=== PATIENT | female | born 1990 | race American Indian/Alaskan Native ===

== ENCOUNTER 2018-01-24 03:06 | Emergency (ER) | payer SELFPAY ==
[2018-01-24 03:22] VITALS: BP 105/73
[2018-01-24 04:21] LABS: Bacteria,Urine 2+ /HPF (Negative); Bilirubin,Urine NEG (Negative); Blood,Urine MOD (Negative); Color,Urine Yellow (Yellow); Mucus,Urine FEW /HPF; Protein,Urine <15 mg/dL mg/dL (Negative); Urobilinogen,Urine < 2.0 mg/dL (<2.0)
[2018-01-24 04:24] LABS: HCG Qualitative,Urine Negative (Negative)
== END 2018-01-24 07:49 ==
LOC: ED 03:06
DX: R30.0 Dysuria (principal); R31.9 Hematuria, unspecified; Z53.21 Procedure and treatment not carried out due to patient leaving prior to being seen by health care provider
CPT/HCPCS: 81001; 81025

== ENCOUNTER 2018-01-24 12:42 | Emergency (ER) | payer SELFPAY ==
[2018-01-24 13:04] VITALS: BP 112/74
--- NOTE | 2018-01-24 15:45 | Emergency Department Report ---
ED Female HPI - General Chief complaint: Urogenital-Female Stated complaint: BLOOD IN URINE/PAIN Time Seen by Provider: 01/24/18 15:32 Source: patient Mode of arrival: Ambulatory Limitations: No Limitations - History of Present Illness Initial comments: This is a 27-year-old -[place] female who presents with hematuria and dysuria for 2 days. 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 Patient states she has been having suprapubic pain and bilateral flank pain for 2-3 days. Patient states she has not taken anything. She admits to recently being treated for yeast infection and negative STD screening at [facility]. Symptoms improved after completing medication. Patient denies vaginal discharge, frequency, urgency, and fever. MD Complaint: dysuria Onset/Timin -: days(s) Severity: mild Severity scale (0 -10): 0 Quality: burning Consistency: intermittent Improves with: none Worsens with: urination Are you Now?: No Last Menstrual Period: 01/07/18 EDC: 10/14/18 Associated Symptoms: abdominal pain (suprapubic pressure), dysuria, hematuria. denies: nausea/vomiting, fever/chills, headaches, loss of appetite, rash, seizure, shortness of breath, syncope, weakness - Related Data Sexually active: No Previous Rx's Medication Instructions Recorded Last Taken Type Phenazopyridine [Pyridium] 200 mg PO TID #6 tab 01/24/18 Unknown Rx Sulfamethoxazole/Trimethoprim 1 each PO BID #6 tablet 01/24/18 Unknown Rx [Bactrim DS TAB] Allergies Allergy/AdvReac Type Severity Reaction Status Date / Time No Known Allergies Allergy Unverified 01/24/18 03:22 ED Review of Systems ROS: Stated complaint: BLOOD IN URINE/PAIN Other details as noted in HPI Constitutional: denies: chills, fever Respiratory: denies: cough, shortness of breath, wheezing Cardiovascular: denies: chest pain, palpitations Gastrointestinal: abdominal pain (suprapubic pressure). denies: nausea, vomiting, diarrhea Genitourinary: dysuria, hematuria. denies: urgency, discharge Musculoskeletal: back pain (bilateral flank pain). denies: joint swelling, arthralgia Skin: denies: rash, lesions Neurological: denies: headache, weakness, paresthesias Psychiatric: denies: anxiety, depression ED Past Medical Hx - Past Medical History Previous Medical History?: No - Surgical History Past Surgical History?: Yes Additional Surgical History: liposuction - Social History Smoking Status: Light Tobacco Smoker Substance Use Type: Alcohol - Medications Home Medications: Home Medications Medication Instructions Recorded Confirmed Last Taken Type Phenazopyridine [Pyridium] 200 mg PO TID #6 tab 01/24/18 Unknown Rx Sulfamethoxazole/Trimethoprim 1 each PO BID #6 tablet 01/24/18 Unknown Rx [Bactrim DS TAB] ED Physical Exam - General Limitations: No Limitations General appearance: alert, in no apparent distress - Respiratory Respiratory exam: Present: normal lung sounds bilaterally. Absent: respiratory distress - Cardiovascular Cardiovascular Exam: Present: regular rate, normal rhythm. Absent: systolic murmur, diastolic murmur, rubs, gallop - GI/Abdominal GI/Abdominal exam: Present: soft, normal bowel sounds. Absent: distended, tenderness, guarding, rebound, rigid, organomegaly, mass - Back Exam Back exam: Present: CVA tenderness (L). Absent: CVA tenderness (R), muscle spasm, paraspinal tenderness, vertebral tenderness, rash noted - Neurological Exam Neurological exam: Present: alert, oriented X3 - Psychiatric Psychiatric exam: Present: normal affect, normal mood - Skin Skin exam: Present: warm, dry, intact, normal color. Absent: rash ED Course Vital Signs 01/24/18 13:00 Temperature 98.4 F Pulse Rate 81 Respiratory 18 Rate Blood Pressure 112/74 O2 Sat by Pulse 98 Oximetry ED Medical Decision Making - Medical Decision Making This is a 27-year-old -[place] female who presents with hematuria and dysuria for 2 days. Patient was examined by me. Vitals are stable and in no acute distress. Urinalysis obtained on original visit at 3:00 AM today. There is moderate blood and mucous. Urine hCG negative. Will treat with bactrim DS 1 tab po bid x 3 days and pyridium for UTI. Discharged home in stable condition. Discussed prevention options. F/U with PCP. Critical care attestation.: If time is entered above; I have spent that time in minutes in the direct care of this critically ill patient, excluding procedure time. ED Disposition Clinical Impression: Dysuria UTI (urinary tract infection) Qualifiers: Urinary tract infection type: acute cystitis Hematuria presence: with hematuria Qualified Code(s): N30.01 - Acute cystitis with hematuria Disposition: TO HOME OR SELFCARE Is pt being admited?: No Does the pt Need Aspirin: No Condition: Stable Instructions: Urinary Tract Infection in Women (ED) Additional Instructions: Increase fluid intake to 1-2 L per day. Complete full course of antibiotics as prescribed. Avoid drinking alcohol while taking antibiotics and for 24 hours after completion. Follow-up with primary care provider if symptoms are not improving as discussed. Prescriptions: Phenazopyridine [Pyridium] 200 mg PO TID #6 tab Sulfamethoxazole/Trimethoprim [Bactrim DS TAB] 1 each PO BID #6 tablet Referrals: [facility] [Outside] - 3-5 Days [facility] [Outside] - 3-5 Days [facility] [Outside] - 3-5 Days Time of Disposition: 15:50 Print Language: ICELANDIC
== END 2018-01-24 16:08 | disposition home or self-care (01) ==
LOC: ED 12:42
DX: N30.01 Acute cystitis with hematuria (principal); R30.0 Dysuria; F17.200 Nicotine dependence, unspecified, uncomplicated
CPT/HCPCS: 99282